=== PATIENT | female | born 1995 | race Caucasian/White ===

== ENCOUNTER 2020-05-19 15:47 | Outpatient (REF) | payer OTHER, SELFPAY ==
--- NOTE | 2020-05-19 14:30 | PAPFT_PTH ---
PATIENT: Sheeba Patel LOC: [facility] U#:[id number] AGE/SX: 24/F ROOM: RE05/19/[address]: Sandie Wells : 1995 BED: DIS: 05/19/2020 SPEC #: [id number] RECD: 05/20/20 12:45 STATUS: INOCENTE REQ #: [id number] JOHNY: 05/19/20 14:[address]: Sandie Wells DEPT: [facility] Cytology RECD BY: Sarah Nunn ENTERED: 05/20/20 12:45 SP TYPE: PAPFT OTHR DR: Unknown,Unknown Tissues: 1 - CX/ENDOCX FOR PAP SMEARS Procedures: PAP THIN PREP/[facility] Screening Comments: [id number] (CHLAMYDIA/GC)
[2020-05-23 13:46] LABS: Chlamydia Result Negative (Negative); GC Result Negative (Negative)
== END 2020-05-19 16:07 ==
LOC: NCHCN 15:47
PROVIDERS: Visit Provider Nurse Practitioner Family
DX: Z11.3 Encounter for screening for infections with a predominantly sexual mode of transmission (principal); Z12.4 Encounter for screening for malignant neoplasm of cervix
CPT/HCPCS: 87491; 87591; 88142

== ENCOUNTER 2020-07-16 09:22 | Outpatient (REF) | payer SELFPAY ==
[2020-07-17 12:03] LABS: COVID-19 RT-PCR UVMMC Result Negative (Negative)
== END 2020-07-16 09:42 ==
LOC: NCHCN 09:22
PROVIDERS: Visit Provider Family Medicine
DX: Z20.828 Contact with and (suspected) exposure to other viral communicable diseases (principal)
CPT/HCPCS: U0003

== ENCOUNTER 2020-08-02 14:10 | Outpatient (REF) | payer OTHER, BC, SELFPAY | END 2020-08-02 14:30 | LOC: LBN 14:10 | PROVIDERS: Visit Provider Nurse Practitioner Family | DX: R30.0 Dysuria (principal) | CPT/HCPCS: 87077; 87086; 87186 ==

== ENCOUNTER 2020-08-08 17:04 | Outpatient (REF) | payer OTHER, BC, SELFPAY ==
[2020-08-10 18:06] LABS: SARS-CoV-2 RNA Not Detected (NotDetected); SARS-CoV-2 RNA Source Nasal/Nares
== END 2020-08-08 17:24 ==
LOC: NCHCN 17:04
PROVIDERS: PCP Nurse Practitioner Family; Visit Provider Nurse Practitioner Family
DX: Z20.828 Contact with and (suspected) exposure to other viral communicable diseases (principal)
CPT/HCPCS: U0003

== ENCOUNTER 2020-08-22 20:52 | Outpatient (REF) | payer OTHER, SELFPAY ==
[2020-08-25 19:17] LABS: Patient Race White; SARS-CoV-2 RNA Undetected (Undetected); SARS-CoV-2 Specimen Source Nasal
== END 2020-08-22 21:12 ==
LOC: NCHCN 20:52
PROVIDERS: PCP Nurse Practitioner Family; Visit Provider Nurse Practitioner Family
DX: Z20.828 Contact with and (suspected) exposure to other viral communicable diseases (principal)
CPT/HCPCS: U0003

== ENCOUNTER 2020-09-05 21:14 | Outpatient (REF) | payer OTHER, SELFPAY ==
[2020-09-08 21:31] LABS: COVID-19 RT-PCR Result NEGATIVE (Negative)
== END 2020-09-05 21:34 ==
LOC: NCHCN 21:14
PROVIDERS: PCP Nurse Practitioner Family; Visit Provider Nurse Practitioner Family
DX: Z20.828 Contact with and (suspected) exposure to other viral communicable diseases (principal)
CPT/HCPCS: U0003

== ENCOUNTER 2020-09-26 14:46 | Outpatient (REF) | payer OTHER, BC, SELFPAY ==
[2020-09-27 21:30] LABS: COVID-19 RT-PCR Result NEGATIVE (Negative)
== END 2020-09-26 15:06 ==
LOC: NCHCN 14:46
PROVIDERS: PCP Nurse Practitioner Family; Visit Provider Nurse Practitioner Family
DX: Z20.828 Contact with and (suspected) exposure to other viral communicable diseases (principal)
CPT/HCPCS: U0003